=== PATIENT | male | born 1940 | race Caucasian/White ===

== ENCOUNTER → 2016-07-12 | Outpatient (CLI) | payer MEDICARE, OTHER ==
[~2016-07-12] MED LIST: ALPR0.257 PO; ASPI-860 PO; CLOP75TA3 PO; EZET10TA5 PO; MECL-105 PO; MECL25TA3 PO; NEBI5TAB8 PO; NTR.4SL SL; PANT40TA3 PO; SIMV80TA2 PO; VIT1TABL57 PO
[2016-07-12 07:50] LABS: BASOPHILS % (AUTO) 1 % (0-2); EOSINOPHILS # (AUTO) 0.2 10^3uL; EOSINOPHILS % (AUTO) 5 % (0-4); MEAN CORPUSCULAR HEMOGLOBIN 29.2 PG (26.0-34.0); MEAN CORPUSCULAR HGB CONC 33.7 g/dL (31.0-37.0); MEAN CORPUSCULAR VOLUME 87 FL (80-100); MEAN PLATELET VOLUME 10.8 FL (6.0-9.5); MONOCYTES # (AUTO) 0.6 X10^3; MONOCYTES % (AUTO) 12 % (3-11); NEUTROPHILS # (AUTO) 3.1 X10^3; NEUTROPHILS % (AUTO) 63 % (51-67); PLATELET COUNT 165 10^3uL (150-450); WHITE BLOOD COUNT 4.92 10^3uL (4.0-11.0)
[2016-07-12 08:10] LABS: BILIRUBIN,URINE Negative (Negative); CLARITY,URINE Clear; COLOR,URINE Yellow; GLUCOSE, URINE (UA) Negative (Negative); LEUKOCYTE ESTERASE ,URINE Negative (Negative); PH,URINE 5.5 (5.0 - 8.0)
[2016-07-12 08:12] LABS: ALBUMIN 4.3 g/dL (3.4-5.0); MAGNESIUM* 1.9 mg/dL (1.6-2.3); TOTAL PROTEIN 7.6 g/dL (6.4-8.5)
[2016-07-12 08:18] LABS: URINE CENTRIFUGED VOLUME 12 mL
[2016-07-12 08:20] LABS: RBC,URINE None Seen /HPF
--- NOTE | 2016-07-12 10:15 | Diagnostic Imaging Report ---
INDICATION: Atrial fibrillation. Frontal and lateral views of the chest demonstrate previous sternotomy changes with a monitor technician in place. Heart size remains at the upper limits of normal. Vascularity is normal. No pleural effusions are present. IMPRESSION: Stable chest. Dictated by: Dictated on workstation # [id number]
== END ==
LOC: LAB 07:26
PROVIDERS: ATTEND Family Medicine
DX: R06.00 Dyspnea, unspecified (principal); I49.8 Other specified cardiac arrhythmias; R79.89 Other specified abnormal findings of blood chemistry; E78.2 Mixed hyperlipidemia; D50.8 Other iron deficiency anemias; N39.0 Urinary tract infection, site not specified; E13.65 Other specified diabetes mellitus with hyperglycemia; E83.42 Hypomagnesemia; N40.1 Benign prostatic hyperplasia with lower urinary tract symptoms; E03.4 Atrophy of thyroid (acquired); M81.0 Age-related osteoporosis without current pathological fracture; M10.071 Idiopathic gout, right ankle and foot
CPT/HCPCS: 36415; 71020; 80053; 80061; 81003; 81015; 82306; 83036; 83735; 84153; 84436; 84443; 84550; 85025; 93005